=== PATIENT | female | born 1980 | race Caucasian/White ===

== ENCOUNTER 2024-05-11 22:02 | Emergency (ER) | payer MEDICAID ==
[~2024-05-11] VITALS: Ht 182.9 cm; Wt 108.9 kg
[2024-05-11] MEDS ORDERED: HYDROCODONE/APAP 10/325MG TABLET ONE (23:59)
[2024-05-12] MEDS: HYDROCODONE/APAP 10/325MG TABLET PO ONE
[2024-05-12] MEDS ORDERED: ONDANSETRON 4 MG TAB.RAPDIS ONE
[2024-05-12] MEDS: ONDANSETRON 4 MG TAB.RAPDIS SL ONE
[2024-05-12] MEDS ORDERED: ACETAMINOPHEN ES 500 MG TABLET ONE (23:45)
[2024-05-13] MEDS: ACETAMINOPHEN ES 500 MG TABLET PO ONE (00:13)
[2024-05-13 14:58] VITALS: BP 141/99; TEMP 98.1; O2SAT 99
== END 2024-05-12 07:18 | disposition home or self-care (01) ==
LOC: ER 22:11
DX: G89.29 Other chronic pain (principal); M79.604 Pain in right leg
CPT/HCPCS: 99285; Q0162